=== PATIENT | female | born 1955 | race Caucasian/White ===

== ENCOUNTER 2020-06-04 07:10 | Day surgery (SDC) | payer MEDICARE, OTHER, SELFPAY ==
[~2020-06-04] VITALS: Ht 157.5 cm; Wt 59.4 kg
[2020-06-04] MEDS ORDERED: fentaNYL citrate 0.05 MG/ML VIAL ONE (09:38)
[2020-06-04] MEDS ORDERED: MIDAZOLAM 5 MG/5 ML VIAL ONE (09:39)
[2020-06-04] MEDS ORDERED: LIDOCAINE 2% 100 MG/5 ML UJET TP ONE (09:39)
[2020-06-04] MEDS ORDERED: fentaNYL citrate 0.05 MG/ML VIAL IVP ONE (15:45)
[2020-06-04] MEDS ORDERED: MIDAZOLAM 2 MG/2 ML VIAL IVP ONE (15:45)
== END 2020-06-04 11:10 | disposition home or self-care (01) ==
LOC: MDS 07:10 → MFCC 07:12 → MDS 11:10
PROVIDERS: ATTEND Internal Medicine Gastroenterology
DX: Z12.11 Encounter for screening for malignant neoplasm of colon (principal); K57.30 Diverticulosis of large intestine without perforation or abscess without bleeding; Z80.0 Family history of malignant neoplasm of digestive organs; K62.89 Other specified diseases of anus and rectum; Z79.899 Other long term (current) drug therapy
CPT/HCPCS: 45378; 87426; J2250; J3010